=== PATIENT | male | born 1955 | race African-American/Black ===

== ENCOUNTER 2024-01-28 15:01 | Emergency (ER) | payer MEDICARE, BC ==
[~2024-01-28] VITALS: Ht 185.4 cm; Wt 82.0 kg
[2024-01-28 15:07] VITALS: BP 155/98; PULSE 90; RESP 16; TEMP 98.6; O2SAT 98
[2024-01-28 15:59] LABS: BASOPHILS % 0.3 % (0.0-2.0); EOSINOPHILS % 1.2 % (0.0-5.0); HEMOGLOBIN. 9.9 g/dL (14.0-18.0); LYMPHOCYTES % 19.4 % (20.0-50.0); MEAN CORPUSCULAR HEMOGLOBIN 26.4 pg (28.0-32.0); MEAN CORPUSCULAR HGB CONC 31.9 g/dL (31.0-37.0); MEAN CORPUSCULAR VOLUME 82.7 fL (80.0-94.0); MONOCYTES % 10.3 % (2.0-8.0); NEUTROPHILS % 68.8 % (40.0-76.0); PLATELET 245 x1000/uL (130-400); RED BLOOD CELL COUNT 3.75 mill/uL (4.7-6.1); RED CELL DISTRIBUTION WIDTH 16.9 % (11.6-14.6); WHITE BLOOD COUNT 5.6 x1000/uL (4.5-11.0)
[2024-01-28 16:02] LABS: CHLORIDE 105 mEq/L (98-107); POTASSIUM 3.1 mEq/L (3.5-5.1); SODIUM 139 mEq/L (136-145)
[2024-01-28 16:03] LABS: CALCIUM 9.1 mg/dL (8.7-10.4); CARBON DIOXIDE 24 mEq/L (21-32)
[2024-01-28 16:08] LABS: CREATININE 1.1 mg/dL (0.6-1.3); GLUCOSE 110 mg/dL (70-105); INR 1.1; PROTHROMBIN TIME 12.3 sec (9.6-11.0); UREA NITROGEN BLOOD 10 mg/dL (9-23)
[2024-01-28 16:10] LABS: ALANINE AMINOTRANSFERASE 10 IU/L (10-49); ALBUMIN 3.7 g/dL (3.2-4.8); ASPARTATE AMINOTRANSFERASE 22 IU/L (<34); BILIRUBIN TOTAL 0.4 mg/dL (0.1-1.0); PROTEIN TOTAL 6.5 g/dL (6.0-8.3); TROPONIN I HIGH SENSITIVITY 6 ng/L (3.0-53)
[2024-01-28 16:27] LABS: BILIRUBIN DIRECT < 0.1 mg/dL (<=3.0); ETHANOL BLOOD < 10 mg/dL (<10)
[2024-01-28] MEDS: HALOPERIDOL LACTATE 5MG/ML VIAL IM ONE (16:27)
[2024-01-28 18:18] LABS: TROPONIN I HIGH SENSITIVITY 9 ng/L (3.0-53)
[2024-01-28] MEDS: LORAZEPAM 2MG/ML INJ IV ONE (19:08)
[2024-01-28] MEDS: POTASSIUM CHLORIDE 20MEQ TABLET SR PO ONE (19:08)
== END 2024-01-28 20:31 | disposition home or self-care (01) ==
LOC: ER 15:01
DX: F12.90 Cannabis use, unspecified, uncomplicated (principal); I49.9 Cardiac arrhythmia, unspecified
CPT/HCPCS: 80076; 80048; 80320; 83880; 83690; 85025; 85610; 84484; 36415; 71045; 93005; 96372; 96374; 99285; J1630; J2060; G0480